=== PATIENT | male | born 1985 | race Caucasian/White ===

== ENCOUNTER 2020-07-04 03:25 | Observation (INO) | payer MEDICAID, SELFPAY ==
[2020-07-04] VITALS (10 sets, daily range): BP systolic 133–177; BP diastolic 52–96; PULSE 60–88; RESP 14–20; TEMP 36.2–37.3; O2SAT 85–97; BMI 36.8
--- NOTE | ~2020-07-04 | CT_ITS ---
EXAMINATION: CT ANGIOGRAM OF THE CHEST WITH AND WITHOUT CONTRAST (CT PULMONARY ANGIOGRAM FOR PE) CLINICAL INFORMATION: Reason for Exam hypoxic, elevated dimer COMPARISON: 06/14/2013 TECHNIQUE: Prior to contrast administration, noncontrast localization images were obtained. Subsequently, multidetector volumetric imaging was performed from the thoracic inlet to below the diaphragms following the administration of 65 mL Omnipaque 350 intravenous contrast. No contrast reaction reported Sagittal, coronal, and MIP oblique sagittal reformatted images were obtained on the CT workstation, uploaded to PACS, and reviewed. This CT examination was performed using dose optimization techniques as appropriate, variously including the following: *Automated exposure control *Adjustment of mA and/or kV according to patient size (this includes techniques or standardized protocols for targeted exams where dose is matched to indication/reason for exam; i.e. extremities or head) *Use of iterative reconstruction technique Total exam dose-length product 428 mGy-cm FINDINGS: QUALITY OF STUDY/CONTRAST BOLUS: Satisfactory. PULMONARY ARTERIES: No central or segmental pulmonary emboli. THORACIC AORTA: No aneurysm or dissection. LUNG: No focal consolidation, nodules or masses. The central airways are patent. PLEURA: No pleural effusion or pneumothorax. MEDIASTINUM: Normal heart size. No pericardial effusion. No hilar or mediastinal lymphadenopathy. No evidence of septal bowing or right heart strain. CHEST WALL/AXILLA: No axillary or internal mammary lymphadenopathy. OSSEOUS STRUCTURES: No acute or suspicious osseous abnormality. UPPER ABDOMEN: Low-attenuation of the liver suggests hepatic steatosis. No reflux of contrast into the hepatic veins to suggest elevated right heart pressures. CT/CT angio chest PE protocol IMPRESSION: No pulmonary embolism or other intrathoracic abnormality. Likely hepatic steatosis. VTE: negative
--- NOTE | ~2020-07-04 | XR_ITS ---
EXAMINATION: XR CHEST CLINICAL INFORMATION: Hypoxic COMPARISON: 06/14/2013 TECHNIQUE: Frontal view of the chest was obtained. FINDINGS: The lungs are well expanded. There is no focal consolidation, edema, or effusion. No pneumothorax. The cardiomediastinal silhouette is within normal limits. No acute osseous abnormality. XR/XR chest 1V IMPRESSION: No acute pulmonary finding.
--- NOTE | 2020-07-04 03:35 | ECG_ITS ---
Test Reason : SOB Blood Pressure : / mmHG Vent. Rate : 068 BPM Atrial Rate : 068 BPM P-R Int : 136 ms QRS Dur : 080 ms QT Int : 380 ms P-R-T Axes : 042 013 002 degrees QTc Int : 404 ms Normal sinus rhythm Normal ECG When compared with ECG of 14-JUN-2013 19:21, ST no longer elevated in Anterior leads Referred By: Ambika Linares Electronically Signed By:SHANELL FUENTES MD
--- NOTE | 2020-07-04 03:36 | ED.GENADULT ---
HPI - General Adult General Chief complaint: Dyspnea Stated complaint: BLE edema, marijuana, diminished lungs Time Seen by Provider: 07/04/20 03:28 Source: patient Mode of arrival: ambulatory Limitations: no limitations History of Present Illness HPI narrative: Patient comes to the emergency room via ambulance, patient states that for the last 24 hours he has been feeling short of breath, noted bilateral lower extremity edema yesterday. Patient states that he has been smoking marijuana off the street, possibly laced with drugs. Patient denies chest pain. When EMS arrived on site to sampler pickup the patient, patient's oxygen saturation has been ranging between 85 and 93% on room air with good waveform Related Data Allergies Allergy/AdvReac Type Severity Reaction Status Date / Time acetaminophen [From TYLENOL] Allergy Severe HIVES Unverified 11/22/19 16:45 morphine [MORPHINE] Allergy Unknown HIVES Unverified 11/22/19 16:45 Review of Systems Review of Systems: Constitutional : No weight loss, subjective fever, no chills, no body aches ENT/Mouth : No Hearing loss, No Ear Pain, No Nasal Congestion, No Sinus Pain, mild hoarseness, No sore throat, No Rhinorrhea, No Swallowing Difficulty Eyes: No Eye Pain, No Swelling, No Redness, No Foreign Body, No Discharge, No Vision Changes Cardiovascular : No Chest Pain, No Orthopnea, complaining of new onset bilateral lower pitting edema Respiratory : Mild Cough, No Sputum, No Wheezing, No Smoke Exposure, No Dyspnea Gastrointestinal : No Nausea, No Vomiting, had 1 episode of diarrhea today, No Constipation, No abdominal Pain, No Hematochezia, No Melena Genitourinary : no irregular bleeding, No Dysuria, No Urinary Frequency, No Hematuria, No Urinary Incontinence, No Urgency, No Flank Pain, No Urinary Flow Changes, No Hesitancy Musculoskeletal : No joint pain, No Myalgias, No Joint Swelling Skin : No Skin Lesions, No rash Neuro : No Weakness, No Numbness, No Paresthesias, No Loss of Consciousness, No Dizziness, No Headache Psych : No Anxiety/Panic, No Depression, No SI/HI/AH/VH, No Social Issues, Heme/Lymph: No Bruising, No Bleeding,No Lymphadenopathy Endocrine : No Polyuria, No Polydipsia, No Temperature Intolerance PMFSH Past Medical History Medical History (Updated 07/04/20 @ 06:28 by Ambika Linares MD) Heart murmur Obese Substance abuse Surgical History (Updated 07/04/20 @ 03:37 by Pam Zamudio) No history of previous surgery Social History Social History Smoking Status: Current every day smoker Use of substances other than those prescribed or required for medical reasons: Yes Substance Use Type: Marijuana Substance Use Frequency: Monthly Advance Directives: No Advance Directives Information Provided: No Physical Exam Vital Signs: Vital Signs: Last Vital Signs Temp 99.1 F 07/04/20 03:26 Pulse 88 07/04/20 04:16 Resp 20 07/04/20 03:26 BP 139/73 07/04/20 03:26 Pulse Ox 87 L 07/04/20 03:26 Body Mass Index 36.8 Appearance: Alert. Oriented X3. No acute distress. Seems a bit somnolent Eyes: Pupils equal, round and reactive to light. ENT: Pharynx normal. Neck: Normal inspection. Neck supple. No lymph nodes noted. No crepitus CVS: Normal heart rate and rhythm. Pulses normal. Normal S1 and S2 Respiratory: No respiratory distress. Diminished breath sounds bilaterally, no wheezing, no rales or crackles, oxygen saturation 83 to 93 % on room air while patient is awake and speaking Abdomen: Soft and nontender. No rigidity. No distention. good BS x4 Skin: Skin warm , mildly diaphoretic. Normal skin color. Normal skin turgor. Extremities: Bilateral +1 pitting edema, No Lacerations. No Rash Neuro: Oriented X 3. No motor deficit. No sensory deficit. Moving all extermities. No slurred speech. Course Course Course Narrative: Patient remains wide awake, however, his oxygen saturation drops to 80 89% on room air while fully awake. Addressed, his oxygen saturation is around 94%, while walking drops to 88%. Patient does become short of breath but recuperates once he sits down. At this time, it is unclear why the patient becomes hypoxic. CT for PE was negative. I discussed the patient with Dr. Guaman, patient being admitted. Patient's U tox is pending, however, his oxygen saturation drops was he is fully awake and speaking. Medical Decision Making Lab Data Result diagrams: 07/04/20 03:53 07/04/20 03:53 Labs: Lab Results 07/04/20 07/04/20 07/04/20 Range/Units 03:53 03:53 03:53 WBC 8.0 (4.8-10.8) X10*3/uL RBC 4.18 L (4.60-5.80) X10*6/uL Hgb 12.5 L (14.0-18.0) g/dl Hct 37.4 L (42-52) % MCV 89.5 (80-98) fL MCH 29.9 (27.0-33.0) pg MCHC 33.4 (31.0-36.0) g/dl RDW 12.4 (11.0-16.0) % Plt Count 206 (160-400) X10*3/uL MPV 8.6 L (9.4-12.4) fL Immature Gran % (Auto) 0.7 H (0.0-0.4) % Neut % (Auto) 69.1 (45-73) % Lymph % (Auto) 14.3 L (20-40) % [place] % (Auto) 13.5 H (2-11) % Eos % (Auto) 1.9 (0-4) % Baso % (Auto) 0.5 (0-2) % Lymph # (Auto) 1.2 (1.2-4.9) X10*3/uL [place] # (Auto) 1.1 (0.1-1.2) X10*3/uL Eos # (Auto) 0.2 (0.0-0.4) X10*3/uL Baso # (Auto) 0.0 (0.0-0.2) X10*3/uL Abs Immat Gran (auto) 0.06 H (0.00-0.03) X10*3/uL Absolute Neuts (auto) 5.5 (2.0-8.3) X10*3/uL Absolute Nucleated RBC 0.000 (0.0-0.012) X10*3/uL Nucleated RBC % (auto) 0.0 (0.0-0.2) /100WBC D-Dimer NG/ML Sodium 139 (135-145) mmol/L Potassium 4.4 (3.3-5.1) mmol/L Chloride 103 (96-108) mmol/L Carbon Dioxide 26 (22-29) mmol/L Anion Gap 14 (12-20) BUN 19 H (9-16) mg/dL Creatinine 1.09 (0.5-1.4) mg/dL Estim Creat Clear Calc 110.1 Estimated GFR > 60 POC Glucose (60-115) mg/dL Random Glucose 107 (60-115) mg/dL Lactic Acid 0.6 (0.5-2.0) mmol/L Calcium 9.0 (8.4-10.2) mg/dL Total Bilirubin 0.7 (0.0-1.0) mg/dL Direct Bilirubin 0.3 (0.0-0.5) mg/dL AST 70 H (5-37) U/L ALT 40 (0-40) U/L Alkaline Phosphatase 95 (39-117) U/L Troponin I High Sens (<3.5-35.0) ng/L B-Natriuretic Peptide (<100) pg/mL Total Protein 7.2 (6.5-8.0) g/dL Albumin 4.6 (3.5-5.0) g/dL Urine Color Urine Appearance Urine pH (5.0-8.0) Ur Specific [place] (1.005-1.025) Urine Protein (NEG-TRACE) MG/DL Urine Glucose (UA) (NEG) MG/DL Urine Ketones (NEG) MG/DL Urine Blood (NEG) Urine Nitrite (NEG) Ur Leukocyte Esterase (NEG) Coronavirus (PCR) (Negative) Influenza Type A (PCR) (Negative) Influenza Type B (PCR) (Negative) RSV RNA Qual (PCR) (Negative) 07/04/20 07/04/20 07/04/20 Range/Units 03:53 03:53 03:53 WBC (4.8-10.8) X10*3/uL RBC (4.60-5.80) X10*6/uL Hgb (14.0-18.0) g/dl Hct (42-52) % MCV (80-98) fL MCH (27.0-33.0) pg MCHC (31.0-36.0) g/dl RDW (11.0-16.0) % Plt Count (160-400) X10*3/uL MPV (9.4-12.4) fL Immature Gran % (Auto) (0.0-0.4) % Neut % (Auto) (45-73) % Lymph % (Auto) (20-40) % [place] % (Auto) (2-11) % Eos % (Auto) (0-4) % Baso % (Auto) (0-2) % Lymph # (Auto) (1.2-4.9) X10*3/uL [place] # (Auto) (0.1-1.2) X10*3/uL Eos # (Auto) (0.0-0.4) X10*3/uL Baso # (Auto) (0.0-0.2) X10*3/uL Abs Immat Gran (auto) (0.00-0.03) X10*3/uL Absolute Neuts (auto) (2.0-8.3) X10*3/uL Absolute Nucleated RBC (0.0-0.012) X10*3/uL Nucleated RBC % (auto) (0.0-0.2) /100WBC D-Dimer 239 NG/ML Sodium (135-145) mmol/L Potassium (3.3-5.1) mmol/L Chloride (96-108) mmol/L Carbon Dioxide (22-29) mmol/L Anion Gap (12-20) BUN (9-16) mg/dL Creatinine (0.5-1.4) mg/dL Estim Creat Clear Calc Estimated GFR POC Glucose (60-115) mg/dL Random Glucose (60-115) mg/dL Lactic Acid (0.5-2.0) mmol/L Calcium (8.4-10.2) mg/dL Total Bilirubin (0.0-1.0) mg/dL Direct Bilirubin (0.0-0.5) mg/dL AST (5-37) U/L ALT (0-40) U/L Alkaline Phosphatase (39-117) U/L Troponin I High Sens 3.9 (<3.5-35.0) ng/L B-Natriuretic Peptide 13 (<100) pg/mL Total Protein (6.5-8.0) g/dL Albumin (3.5-5.0) g/dL Urine Color Urine Appearance Urine pH (5.0-8.0) Ur Specific [place] (1.005-1.025) Urine Protein (NEG-TRACE) MG/DL Urine Glucose (UA) (NEG) MG/DL Urine Ketones (NEG) MG/DL Urine Blood (NEG) Urine Nitrite (NEG) Ur Leukocyte Esterase (NEG) Coronavirus (PCR) NEGATIVE (Negative) Influenza Type A (PCR) NEGATIVE (Negative) Influenza Type B (PCR) NEGATIVE (Negative) RSV RNA Qual (PCR) NEGATIVE (Negative) 07/04/20 07/04/20 Range/Units 04:01 06:10 WBC (4.8-10.8) X10*3/uL RBC (4.60-5.80) X10*6/uL Hgb (14.0-18.0) g/dl Hct (42-52) % MCV (80-98) fL MCH (27.0-33.0) pg MCHC (31.0-36.0) g/dl RDW (11.0-16.0) % Plt Count (160-400) X10*3/uL MPV (9.4-12.4) fL Immature Gran % (Auto) (0.0-0.4) % Neut % (Auto) (45-73) % Lymph % (Auto) (20-40) % [place] % (Auto) (2-11) % Eos % (Auto) (0-4) % Baso % (Auto) (0-2) % Lymph # (Auto) (1.2-4.9) X10*3/uL [place] # (Auto) (0.1-1.2) X10*3/uL Eos # (Auto) (0.0-0.4) X10*3/uL Baso # (Auto) (0.0-0.2) X10*3/uL Abs Immat Gran (auto) (0.00-0.03) X10*3/uL Absolute Neuts (auto) (2.0-8.3) X10*3/uL Absolute Nucleated RBC (0.0-0.012) X10*3/uL Nucleated RBC % (auto) (0.0-0.2) /100WBC D-Dimer NG/ML Sodium (135-145) mmol/L Potassium (3.3-5.1) mmol/L Chloride (96-108) mmol/L Carbon Dioxide (22-29) mmol/L Anion Gap (12-20) BUN (9-16) mg/dL Creatinine (0.5-1.4) mg/dL Estim Creat Clear Calc Estimated GFR POC Glucose 114 (60-115) mg/dL Random Glucose (60-115) mg/dL Lactic Acid (0.5-2.0) mmol/L Calcium (8.4-10.2) mg/dL Total Bilirubin (0.0-1.0) mg/dL Direct Bilirubin (0.0-0.5) mg/dL AST (5-37) U/L ALT (0-40) U/L Alkaline Phosphatase (39-117) U/L Troponin I High Sens (<3.5-35.0) ng/L B-Natriuretic Peptide (<100) pg/mL Total Protein (6.5-8.0) g/dL Albumin (3.5-5.0) g/dL Urine Color YELLOW Urine Appearance CLEAR Urine pH 5.5 (5.0-8.0) Ur Specific [place] 1.025 (1.005-1.025) Urine Protein NEG (NEG-TRACE) MG/DL Urine Glucose (UA) NEG (NEG) MG/DL Urine Ketones 5 (NEG) MG/DL Urine Blood NEG (NEG) Urine Nitrite NEG (NEG) Ur Leukocyte Esterase NEG (NEG) Coronavirus (PCR) (Negative) Influenza Type A (PCR) (Negative) Influenza Type B (PCR) (Negative) RSV RNA Qual (PCR) (Negative) Imaging Data Chest x-ray: Radiologist's impression: The lungs are well expanded. There is no focal consolidation, edema, or effusion. No pneumothorax. The cardiomediastinal silhouette is within normal limits. No acute osseous abnormality. XR/XR chest 1V IMPRESSION: No acute pulmonary finding. CT scan for PE: Radiologist's impression: FINDINGS: QUALITY OF STUDY/CONTRAST BOLUS: Satisfactory. PULMONARY ARTERIES: No central or segmental pulmonary emboli. THORACIC AORTA: No aneurysm or dissection. LUNG: No focal consolidation, nodules or masses. The central airways are patent. PLEURA: No pleural effusion or pneumothorax. MEDIASTINUM: Normal heart size. No pericardial effusion. No hilar or mediastinal lymphadenopathy. No evidence of septal bowing or right heart strain. CHEST WALL/AXILLA: No axillary or internal mammary lymphadenopathy. OSSEOUS STRUCTURES: No acute or suspicious osseous abnormality. UPPER ABDOMEN: Low-attenuation of the liver suggests hepatic steatosis. No reflux of contrast into the hepatic veins to suggest elevated right heart pressures. CT/CT angio chest PE protocol IMPRESSION: No pulmonary embolism or other intrathoracic abnormality. Likely hepatic steatosis. VTE: negative ECG Data Attestation: I personally reviewed and interpreted this ECG as follows: (Sinus rhythm, heart rate 68, no ST segment depression or elevation, no T-wave inversion) Discharge Plan Discharge Clinical Impression: Hypoxia Patient Disposition: Admitted As Inpatient
[2020-07-04 03:59] LABS: Basophils Percent Auto 0.5 % (0-2); Eosinophils Absolute Auto 0.2 X10*3/uL (0.0-0.4); Eosinophils Percent Auto 1.9 % (0-4); Hematocrit 37.4 % (42-52); Hemoglobin 12.5 g/dl (14.0-18.0); Imm Gran Abs Auto 0.06 X10*3/uL (0.00-0.03); Imm Gran Pct Auto 0.7 % (0.0-0.4); Lymphocytes Absolute Auto 1.2 X10*3/uL (1.2-4.9); Lymphocytes Percent Auto 14.3 % (20-40); MANUAL DIFF FLAG NO; Mean Corpuscular HGB Conc 33.4 g/dl (31.0-36.0); Mean Corpuscular Hemoglobin 29.9 pg (27.0-33.0); Mean Corpuscular Volume 89.5 fL (80-98); Mean Platelet Volume 8.6 fL (9.4-12.4); Monocytes Absolute Auto 1.1 X10*3/uL (0.1-1.2); Monocytes Percent Auto 13.5 % (2-11); Neutrophils Absolute Auto 5.5 X10*3/uL (2.0-8.3); Neutrophils Percent Auto 69.1 % (45-73); Platelet Count 206 X10*3/uL (160-400); Red Blood Count 4.18 X10*6/uL (4.60-5.80); Red Cell Distribution Width 12.4 % (11.0-16.0)
[2020-07-04 04:06] LABS: Glucose, Whole Blood 114 mg/dL (60-115)
[2020-07-04 04:11] LABS: D Dimer 239 NG/ML
[2020-07-04 04:22] LABS: Lactic Acid 0.6 mmol/L (0.5-2.0)
[2020-07-04 04:25] LABS: Alanine Aminotransferase 40 U/L (0-40); Albumin Level 4.6 g/dL (3.5-5.0); Alkaline Phosphatase 95 U/L (39-117); Anion Gap 14 (12-20); Aspartate Amino Transferase 70 U/L (5-37); Bilirubin Direct 0.3 mg/dL (0.0-0.5); Bilirubin Total 0.7 mg/dL (0.0-1.0); Blood Urea Nitrogen 19 mg/dL (9-16); Carbon Dioxide 26 mmol/L (22-29); Chloride 103 mmol/L (96-108); Creatinine Clr Calc Pharmacy 110.1; Estimated Glomerular Filt Rate > 60; Glucose Random 107 mg/dL (60-115); Potassium 4.4 mmol/L (3.3-5.1); Sodium 139 mmol/L (135-145); Total Protein 7.2 g/dL (6.5-8.0)
[2020-07-04 04:32] LABS: B Type Natriuretic Peptide 13 pg/mL (<100); Troponin-I High Sensitivity 3.9 ng/L (<3.5-35.0)
[2020-07-04 04:44] LABS: Influenza A PCR NEGATIVE (Negative); Influenza B PCR NEGATIVE (Negative); Resp Syncy Virus RNA Qual PCR NEGATIVE (Negative); SARS COV2 PCR INHOUSE NEGATIVE (Negative)
[2020-07-04] MEDS: iohexoL 350 MG/ML 100 ML INFUS..BTL 65 ML IV (05:09)
[2020-07-04 06:20] LABS: Glucose Urine UA NEG (NEG); Leukocyte Esterase Urine NEG (NEG); Nitrite Urine NEG (NEG); PH 5.5 (5.0-8.0); Specific Gravity - Urine 1.025 (1.005-1.025); Urine Blood NEG (NEG); Urine Ketones 5 MG/DL (NEG); Urine Protein NEG (NEG-TRACE)
[2020-07-04 06:21] LABS: Appearance Urine CLEAR; Color Urine YELLOW
[2020-07-04 07:00] LABS: Amphetamine Screen Urine Not Detected (Not Detect); Barbiturates, Urine Not Detected (Not Detect); Benzodiazepines Screen Urine Not Detected (Not Detect); Cannabinoid Screen Urine POSITIVE (Not Detect); Cocaine Screen Urine Not Detected (Not Detect); Opiate Screen Urine Not Detected (Not Detect); Phencyclidine Screen Urine Not Detected (Not Detect)
--- NOTE | 2020-07-04 09:57 | P.HPHOSP_ITS ---
History of Present Illness Date of Service: 07/04/20 Chief Complaint: leg swelling, shortness of breath, cold sweats This is a 35-year-old male with no significant past medical history presents to the hospital with multiple complaints including lower extremity swelling for several days, dyspnea on exertion and intermittently at rest, cold sweats. All these symptoms started over the last several days. He reports a productive cough -- intermittently brown. He denies any fevers. He denies any sick contacts. He denies chest pain at rest or exertion. He denies any palpitations. He denies any PND or orthopnea. He endorses a 30 lb weight gain since COVID started. In regards to the patients alcohol history -- he endorses that he drinks 2 nips and a few drinks. He reports drinking every other day. He denies any withdrawal symptoms. Upon arrival to the ED, patient was noted to have stable vitals with the exception of hypoxia down to 87%. This improved on its own but again, he was noted to be hypoxic in the mid 80s, this time with exertion and normal conversation. His work up in the ED did not find a cause for his hypoxia. His CT scan was negative for acute findings. His BNP was normal. Nonetheless, do the his significant hypoxia on exertion, he will be observed and undergo further work up. Review of Systems Review of Systems: General - denies fevers or chills, denies weakness or fatigue HEENT -denies blurred vision, denies headache, denies sore throat Cardiovascular - +LE edema, denies cp or palp Respiratory - +sob, +cough Gastrointestinal - denies abdominal pain, nausea, vomiting, diarrhea - denies flank pain, denies dysuria, denies frequency or urgency Musculoskeletal - denies back pain, denies hip pain, denies knee pain, denies shoulder pain Neurological - denies any focal weakness or numbness Skin, denies any bruising or redness Psychiatric - denies any suicidal ideation, hallucinations, homicidal ideation Endocrinology - denies intolerance to hot / cold temperatures [facility] Medical History (Updated 07/04/20 @ 06:28 by Ambika Linares MD) Heart murmur Obese Substance abuse Family History (Updated 07/04/20 @ 10:14 by Jovany Frazier MD) Other Cardiac disease Pertinent family history: Cardiac disease in his father at age 45, unsure of diagnosis Surgical History (Updated 07/04/20 @ 03:37 by Pam Zamudio) No history of previous surgery Social History (Updated 07/04/20 @ 10:15 by Jovany Frazier MD) Alcohol intake: current Alcohol intake frequency: 3 or more drinks per day Alcohol type: beer and hard liquor Smoking Status: Current every day smoker Use of substances other than those prescribed or required for medical reasons: Yes Substance Use Type: Marijuana Substance Use Frequency: Monthly Advance Directives: No Advance Directives Information Provided: No Meds Allergies Allergy/AdvReac Type Severity Reaction Status Date / Time acetaminophen [From TYLENOL] Allergy Severe HIVES Verified 07/04/20 06:30 morphine [MORPHINE] Allergy Unknown HIVES Verified 07/04/20 06:30 Home Medications Medication Instructions Recorded Confirmed Last Taken Type No Known Home Meds 07/04/20 07/04/20 Unknown History Physical Exam Vital Signs and Narrative: Vital Signs: Last Vital Signs Temp 97.5 F 07/04/20 07:08 Pulse 60 07/04/20 07:08 Resp 17 07/04/20 07:08 BP 139/78 07/04/20 07:08 Pulse Ox 95 07/04/20 07:08 Body Mass Index 36.8 Const: Other: Constitutional - Awake and Alert, No apparent distress HEENT - PERRLA, EOMI, JVD difficult to assess Cardiovascular - S1S2, RRR, 2+ pitting edema bilaterally; Respiratory - Normal lung expansion, Normal respiratory effort, No respiratory distress, CTA bilaterally Gastrointestinal - NT / ND; +BS; No rebound or guarding - No CVA tenderness Extremities - no calf tenderness bilaterally, no swelling Musculoskeletal - Normal inspection, normal ROM Skin - Warm/Dry Neurological - Alert & oriented x3, No focal deficit Psychological - Appropriate affect Results Labs CBC and Chem 7: 07/04/20 03:53 07/04/20 03:53 Labs: Laboratory Results - last 24 hr 07/04/20 07/04/20 07/04/20 03:53 03:53 03:53 MCV 89.5 MCH 29.9 MCHC 33.4 RDW 12.4 Plt Count 206 MPV 8.6 L Immature Gran % (Auto) 0.7 H Neut % (Auto) 69.1 Lymph % (Auto) 14.3 L [place] % (Auto) 13.5 H Eos % (Auto) 1.9 Baso % (Auto) 0.5 Lymph # (Auto) 1.2 [place] # (Auto) 1.1 Eos # (Auto) 0.2 Baso # (Auto) 0.0 Abs Immat Gran (auto) 0.06 H Absolute Neuts (auto) 5.5 Absolute Nucleated RBC 0.000 Nucleated RBC % (auto) 0.0 D-Dimer Anion Gap 14 Estim Creat Clear Calc 110.1 Estimated GFR > 60 POC Glucose Random Glucose 107 Lactic Acid 0.6 Calcium 9.0 Total Bilirubin 0.7 Direct Bilirubin 0.3 AST 70 H ALT 40 Alkaline Phosphatase 95 Troponin I High Sens B-Natriuretic Peptide Total Protein 7.2 Albumin 4.6 Urine Color Urine Appearance Urine pH Ur Specific [place] Urine Protein Urine Glucose (UA) Urine Ketones Urine Blood Urine Nitrite Ur Leukocyte Esterase Urine Opiates Screen Ur Barbiturates Screen Ur Phencyclidine Scrn Ur Amphetamines Screen U Benzodiazepines Scrn Urine Cocaine Screen U Marijuana (THC) Screen Coronavirus (PCR) Influenza Type A (PCR) Influenza Type B (PCR) RSV RNA Qual (PCR) 07/04/20 07/04/20 07/04/20 03:53 03:53 03:53 MCV MCH MCHC RDW Plt Count MPV Immature Gran % (Auto) Neut % (Auto) Lymph % (Auto) [place] % (Auto) Eos % (Auto) Baso % (Auto) Lymph # (Auto) [place] # (Auto) Eos # (Auto) Baso # (Auto) Abs Immat Gran (auto) Absolute Neuts (auto) Absolute Nucleated RBC Nucleated RBC % (auto) D-Dimer 239 Anion Gap Estim Creat Clear Calc Estimated GFR POC Glucose Random Glucose Lactic Acid Calcium Total Bilirubin Direct Bilirubin AST ALT Alkaline Phosphatase Troponin I High Sens 3.9 B-Natriuretic Peptide 13 Total Protein Albumin Urine Color Urine Appearance Urine pH Ur Specific [place] Urine Protein Urine Glucose (UA) Urine Ketones Urine Blood Urine Nitrite Ur Leukocyte Esterase Urine Opiates Screen Ur Barbiturates Screen Ur Phencyclidine Scrn Ur Amphetamines Screen U Benzodiazepines Scrn Urine Cocaine Screen U Marijuana (THC) Screen Coronavirus (PCR) NEGATIVE Influenza Type A (PCR) NEGATIVE Influenza Type B (PCR) NEGATIVE RSV RNA Qual (PCR) NEGATIVE 07/04/20 07/04/20 07/04/20 04:01 06:10 06:10 MCV MCH MCHC RDW Plt Count MPV Immature Gran % (Auto) Neut % (Auto) Lymph % (Auto) [place] % (Auto) Eos % (Auto) Baso % (Auto) Lymph # (Auto) [place] # (Auto) Eos # (Auto) Baso # (Auto) Abs Immat Gran (auto) Absolute Neuts (auto) Absolute Nucleated RBC Nucleated RBC % (auto) D-Dimer Anion Gap Estim Creat Clear Calc Estimated GFR POC Glucose 114 Random Glucose Lactic Acid Calcium Total Bilirubin Direct Bilirubin AST ALT Alkaline Phosphatase Troponin I High Sens B-Natriuretic Peptide Total Protein Albumin Urine Color YELLOW Urine Appearance CLEAR Urine pH 5.5 Ur Specific [place] 1.025 Urine Protein NEG Urine Glucose (UA) NEG Urine Ketones 5 Urine Blood NEG Urine Nitrite NEG Ur Leukocyte Esterase NEG Urine Opiates Screen Not Detected Ur Barbiturates Screen Not Detected Ur Phencyclidine Scrn Not Detected Ur Amphetamines Screen Not Detected U Benzodiazepines Scrn Not Detected Urine Cocaine Screen Not Detected U Marijuana (THC) Screen POSITIVE H Coronavirus (PCR) Influenza Type A (PCR) Influenza Type B (PCR) RSV RNA Qual (PCR) Imaging Radiologist's Impressions: Impressions Chest X-Ray 07/04/20 03:35 IMPRESSION: No acute pulmonary finding. Chest CTA 07/04/20 04:21 IMPRESSION: No pulmonary embolism or other intrathoracic abnormality. Likely hepatic steatosis. VTE: negative Assessment and Plan (1) Hypoxia: Status: Acute This is a 35 yo M with no significant PMH presents to the hospital with complaints of TREVIZO, feeling unwell, cold sweats over the several days. He was noted to hypoxic with minmal exertion without a definitive cause and as such he will be admitted for further work up. 1. Hypoxia With minimal exertion, normal levels at rest Patient has bilateral LE swelling, endorses a history of heavy alcohol use. Will evaluate for alcoholic cardiomyopathy with 2d echo. Will give empiric IV lasix. 2. Heavy alcohol use endorses last drink day before admission -- 1 beer not in withdrawal at this time, will monitor with CIWA and start phenobarb per protocol if needed Alcohol cessation has been encouraged 3. Obesity Suspect this may be playing a role in his extertional hypoxia Weight loss, Diet and excerise have been discussed with him. He will need further management as an outpatient Full Code DVT pptx, low risk - early ambulation
--- NOTE | 2020-07-04 09:59 | CA_ITS ---
Transthoracic Echocardiogram Patient (Last, First, Middle): Alon Echeverria, Gender: Male Date of : 1985 Age: 35 Procedure Date: 07/04/2020 Procedure Type: Transthoracic Echocardiogram Location: [facility] – [place], [place] Height: 170.18 cm Weight: 106.6 kg BSA: 2.17 m2 Heart Rate: bpm BP: 139 / 78 mmHg Recreation Professor: Referring MD: Jovany Frazier MD [employer]ipe: Drake Aldrich MD Symptoms: dyspnea on exertin, LE swelling, heavy alcohol use Study Quality: Fair ECG Rhythm: Sinus Conclusions: - Normal study Findings Left Ventricle Normal left ventricular size, thickness, and systolic function. The visually estimated ejection fraction is between 60-65%. Diastolic function is normal for age. Right Ventricle Normal right ventricular cavity size and systolic function. Atria Both atria are normal in size. There is no evidence of interatrial shunt. Aortic Valve Normal aortic valve structure and function. There is no aortic valve stenosis. There is no aortic valve regurgitation. Mitral Valve Normal mitral valve structure and function. There is trace mitral valve regurgitation. There is no mitral valve stenosis. Pulmonic Valve The pulmonic valve is likely normal. There is trace to mild pulmonic valve regurgitation. Tricuspid Valve Likely normal tricuspid valve structure and function. There is trace tricuspid valve regurgitation. The right ventricular systolic pressure is normal. The right ventricular systolic pressure is 29 mmHg. Normal right atrial pressure. There is no evidence of pulmonary hypertension. Great Vessels All visible segments of the aorta are normal in size. The pulmonary artery was not well visualized. Venous The inferior vena cava is normal in size and collapses greater than 50% with inspiration. Pericardium/Pleural There is no evidence of pericardial effusion. Prior Study Comparison No prior study available for comparison. Measurements 2D Linear Measurements IVSd: 0.91 0.6-0.9/0.6-1.0 cm LVIDd: 5.45 3.9-5.3/4.2-5.9 cm LVIDd Index: 2.51 2.4-3.2/2.2-3.1 cm/m2 LVIDs: 3.52 2.0-3.6 cm LVPWd: 0.87 0.7-1.1 cm Ao Root: 3.20 2.1-3.5 cm LA Diam: 3.90 2.7-3.8/3.0-4.0 cm LAIDs Index: 1.80 1.5-2.3 cm/m2 LV Mass: 225.35 67-162/88-224 g LV Mass Index: 103.85 43-95/49-115 g/m2 LVOT Diam: 2.20 3.0+(-)1.3 cm 2D Systolic Function EF 4C: 54.20 >55% EF 2C: 69.40 >55% EF BiP: 62.20 >55% Mitral Valve MV Pk E: 1.24 MV PK A: 0.63 MV Decel Time: 211.00 E/A: 2.00 E'Lateral: 14.70 E'Medial: 8.80 E/E' Med: 14.10 E/E' Lat: 8.40 PHT: 62.00 MVA PHT: 3.55 Decel [place]: 5.85 Aortic Valve AoV Pk Hussein: 1.70 AoV Mn [place]: 1.06 AoV VTI: 0.32 AoV Pk Grad: 12.00 Aov Mn Grad: 5.00 RICHARD Cont.VTI: 3.05 LVOT LVOT Pk [place]: 1.33 LVOT Mn [place]: 0.86 LVOT VTI: 0.26 LVOT Pk Grad: 7.00 LVOT Mn Grad: 4.00 LVOT Diam: 2.20 LVOT Area: 3.80 Diastolic Function MV Pk E: 1.24 MV Pk A: 0.63 E/A: 2.00 E'Medial: 8.80 E/E' Med: 14.10 E' Laterial: 14.70 E/E' Lat: 8.40 Tricuspid Valve TR Pk [place]: 2.54 TR Pk Grad: 26.00 RA Press: 3.00 RVSP: 29.00 Great Vessels Aorta Ao Root-2D: 3.20 2.0-3.7 cm Ao Asc: 3.00 2.1-3.4 cm Pulmonary Valve PV Pk Hussein: 1.37 Peak PV Grad: 8.00 Updated in Other Vendor System with Status of Final Drake Aldrich MD electronically signed on 07/04/2020 2:59:39 PM with status of Final
[2020-07-04] MEDS: Furosemide 20 MG/2 ML VIAL IVPUSH (11:09)
[2020-07-04] MEDS: Nicotine 14 MG PATCH.TD24 TRANSDERMA (13:32)
[2020-07-04] MEDS: 0.9 % Sodium Chloride Flush 3 ML SYRINGE IVFLUSH ×2 (15:14→23:45)
[2020-07-04 17:55] LABS: ABG Base Excess 3.3 mmol/L; ABG HCO3 27 mmol/L (22-26); ABG pCO2 39 mmHg (32-45); ABG pCO2 TC 38 mmHg (32-45); ABG pH 7.45 (7.35-7.45); ABG pH TC 7.46 (7.35-7.45); ABG pO2 79 mmHg (83-108); ABG pO2 TC 75 (83-108)
[2020-07-04 19:44] LABS: ABG Refer to POC result
[2020-07-05 03:24] VITALS: BP 150/81; PULSE 58; RESP 18; TEMP 37.2; O2SAT 96
[2020-07-05 06:35] LABS: Anion Gap 13 (12-20); Blood Urea Nitrogen 11 mg/dL (9-16); Calcium 8.7 mg/dL (8.4-10.2); Carbon Dioxide 25 mmol/L (22-29); Chloride 105 mmol/L (96-108); Creatinine Clr Calc Pharmacy 123.7; Estimated Glomerular Filt Rate > 60; Glucose Random 117 mg/dL (60-115); Potassium 4.3 mmol/L (3.3-5.1); Sodium 139 mmol/L (135-145)
[2020-07-05 07:08] VITALS: BP 148/69; PULSE 92; RESP 16; TEMP 36.6; O2SAT 99
[2020-07-05 07:10] VITALS: BP 149/66; PULSE 56; RESP 16; TEMP 36.2; O2SAT 95
[2020-07-05] MEDS: Nicotine 14 MG PATCH.TD24 TRANSDERMA (08:07)
[2020-07-05] MEDS: 0.9 % Sodium Chloride Flush 3 ML SYRINGE IVFLUSH (08:08)
--- NOTE | 2020-07-05 08:40 | MHC.CM.PN ---
CM met with Patient at bedside and addressed BAKER with him, providing him with the original and placing a copy on the chart. Patient is temporarily staying with his Sister in her apartment and he anticipates returning there/no services, at time of dc. Patient has no HCP and no PCP. Patient is unemployed and functionally independent. Patient has a hx of ETOH and may benefit from a Care Team consult. CM has initiated and will follow for dc planning.
--- NOTE | 2020-07-05 10:43 | P.DS_ITS ---
DS: Providers Provider Date of Service: 07/05/20 Date of admission: 07/04/20 09:57 Primary care physician: None Physician DS: Diagnosis Discharge Diagnosis (1) Hypoxia: Status: Acute DS: Medications Discharge Medications Home Medications: Previous Rx's Medication Instructions Recorded nicotine 14 mg TRANSDERMAL DAILY #21 ea 07/05/20 DS: Summary Hospital Course Hospital Course: Chief Complaint: leg swelling, shortness of breath, cold sweats 35-year-old male with no significant past medical history presents to the hospital with multiple complaints including lower extremity swelling for several days, dyspnea on exertion and intermittently at rest, cold sweats. All these symptoms started over the last several days. He reports a productive cough -- intermittently brown. He denies any fevers. He denies any sick contacts. He denies chest pain at rest or exertion. He denies any palpitations. He denies any PND or orthopnea. He endorses a 30 lb weight gain since COVID started. In regards to the patients alcohol history -- he endorses that he drinks 2 nips and a few drinks. He reports drinking every other day. He denies any withdrawal symptoms. Upon arrival to the ED, patient was noted to have stable vitals with the exception of hypoxia down to 87%. This improved on its own but again, he was noted to be hypoxic in the mid 80s, this time with exertion and normal conversation. His work up in the ED did not find a cause for his hypoxia. His CT scan was negative for acute findings. His BNP was normal. Nonetheless, do the his significant hypoxia on exertion, he will be observed and undergo further work up. Hospital course 35 yo M with no significant PMH presents to the hospital with complaints of TREVIZO, feeling unwell, cold sweats over the several days and was noted to hypoxic O2 sat 87% with minmal exertion therefore patient was admitted for further evaluation and treatment, workup including an echocardiogram showed normal 60- 65% , normal diastolic function, no valvular heart disease CTA chest showed no PE but showed likely hepatitic steatosis, normal electrolytes and albumin, normal liver function except AST 70 since patient oxygenation improved to 95% on room air, and leg swelling has resolved he is being discharged home, likely cause of his shortness of breath and swelling is significant weight gain and deconditioning and alcohol use, he has been strongly advised to abstain from alcohol, follow a low-calorie low-fat diet, he has also been advised to abstain from smoking and is being discharged home on nicotine patch, patient declined care team consult. Time Spent with Patient Time attestation: Total time spent providing and/or coordinating discharge services: Discharge coordination time: Greater than 30 minutes Physical Exam Vital Signs: Vital Signs: Last Vital Signs Temp 97.2 F 07/05/20 07:10 Pulse 56 07/05/20 07:10 Resp 16 07/05/20 07:10 BP 149/66 H 07/05/20 07:10 Pulse Ox 95 07/05/20 07:10 Body Mass Index 36.8 General no acute distress. Neck no JVD. CVS regular rate rhythm, Respiratory lungs clear to auscultation, no respiratory distress, no wheeze, no rhonchi. Gastrointestinal abdomen soft, nontender, bowel sounds audible Extremities swelling resolved Neuro nonfocal Skin no rash DS: Data Data Completed and Pending Labs on day of discharge: Laboratory Results - last 24 hr 07/04/20 07/05/20 17:49 06:01 O2 Saturation 96.0 ABG pH at Pt Temp 7.45 ABG pH (Temp Correct) 7.46 H ABG pCO2 at Pt Temp 39 ABG pCO2 (Temp Corrct 38 ABG pO2 at Pt Temp 79 L ABG pO2 (Temp Correct 75 L ABG HCO3 27 H ABG Base Excess (Actual) 3.3 Sodium 139 Potassium 4.3 Chloride 105 Carbon Dioxide 25 Anion Gap 13 BUN 11 Creatinine 0.97 Estim Creat Clear Calc 123.7 Estimated GFR > 60 Random Glucose 117 H Calcium 8.7 Preliminary micro results at discharge 07/04/20 04:12 Blood Culture - Preliminary Blood - Venous No growth after 24 hours. 07/04/20 04:12 Blood Culture - Preliminary Blood - Venous No growth after 24 hours. Discharge Plan Discharge Patient Disposition: Home, Self-Care Discharge Diagnosis: Acute hypoxic respiratory failure Referrals: Physician,None [Primary Care Provider] - 1 Week Discharge Medications: New nicotine 14 mg/24 hr Patch 24 Hour 14 mg transdermal DAILY Qty: 21 RF: 0 Discharge Orders: Discharge Order (Routine); Ordered 07/05/20 Ordered By: Kelly Rodriguez Diet: low fat, low cholesterol Activity on Discharge: As tolerated Stand Alone Forms: Patient Portal Discharge page Care Plan Goals: Abstain from alcohol and tobacco use Health Concerns: Low oxygenation likely due to deconditioning, no acute infection heart failure or pulmonary embolism found, lower extremity edema resolved Plan of Treatment: Abstain from alcohol follow low-calorie diet Assessment: See discharge summary
--- NOTE | 2020-07-05 10:44 | MHC.CM.PN ---
Patient has been medically cleared for dc to home today, no services.
== END 2020-07-05 11:30 | disposition home or self-care (01) ==
LOC: HO.ED 10:06 → HO.EDOVER 10:12 → HO.IMC 11:57
PROVIDERS: Admitting Provider Family Medicine; Emergency Provider Emergency Medicine; Visit Provider Hospitalist
DX: R09.02 Hypoxemia (principal); F10.10 Alcohol abuse, uncomplicated; E66.9 Obesity, unspecified; R79.1 Abnormal coagulation profile; R60.0 Localized edema; F12.10 Cannabis abuse, uncomplicated; R68.83 Chills (without fever); Z88.6 Allergy status to analgesic agent; Z20.822 Contact with and (suspected) exposure to COVID-19; Z68.36 Body mass index [BMI] 36.0-36.9, adult
CPT/HCPCS: 0241U; 36415; 36600; 71045; 71275; 80048; 80076; 80307; 81003; 82947; 83605; 83880; 84484; 85025; 85379; 87040; 93005; 93306; 96374; 96375; 99219; 99285; J1940; Q9967

== ENCOUNTER 2020-08-05 15:02 | Outpatient (REF) | payer MEDICAID, SELFPAY ==
[2020-08-05 15:53] LABS: COVID-19 Test Negative (Negative)
== END 2020-08-05 15:03 | disposition home or self-care (01) ==
LOC: HO.LAB 15:02
PROVIDERS: Visit Provider Internal Medicine
DX: Z20.822 Contact with and (suspected) exposure to COVID-19 (principal)
CPT/HCPCS: 36415; 87635; C9803

== ENCOUNTER 2020-08-05 15:11 | Emergency (ER) | payer MEDICAID, SELFPAY | END 2020-08-05 16:05 | disposition left against medical advice (07) | PROVIDERS: Emergency Provider Emergency Medicine | DX: R51.9 Headache, unspecified (principal) ==